=== PATIENT | female | born 1980 | race Caucasian/White ===

== ENCOUNTER 2019-08-15 00:55 | Emergency (ER) | payer MEDICAID ==
[~2019-08-15] VITALS: Ht 165.1 cm; Wt 61.2 kg
[2019-08-15 01:03] VITALS: BP 108/71
[2019-08-15] MEDS ORDERED: LIDOCAINE /MPF 1% VIAL 5 ML VIAL ONE (01:17)
--- NOTE | 2019-08-15 01:31 | NUR ---
Patient discharged to home in stable condition. Written and verbal after care instructions given. Patient verbalizes understanding of instruction. Pt ambulatory with a steady gait
== END 2019-08-15 01:50 | disposition home or self-care (01) ==
LOC: ER 00:57
DX: L02.511 Cutaneous abscess of right hand (principal); L03.113 Cellulitis of right upper limb; F17.210 Nicotine dependence, cigarettes, uncomplicated
CPT/HCPCS: 10060; 99283; J3490

== ENCOUNTER 2020-06-19 12:13 | Emergency (ER) | payer MEDICAID ==
[~2020-06-19] VITALS: Ht 165.1 cm; Wt 59.0 kg
[2020-06-19] MEDS ORDERED: IV NS 0.9% 500 ML BAG IV ONE (13:00)
--- NOTE | 2020-06-19 13:19 | NUR ---
BIBS FROM HOME TO ER BED 6. AAOX4. NOT IN RESP DISTRESS, BREATHING EVEN AND UNLABORED. AMBULATORY. CAME IN FOR R CHEST PAIN AND R BACK PAIN SINCE YESTERDAY AFTER DOING STRETCHING. PT REPORTS THAT THE PAIN IS PRESENT WHEN DEEP BREATHING AND COUGHING. RATES PAIN 01/21. MD WAS AT THE BEDSIDE FOR EVAL. ORDERS RECEIVED, NOTED AND CARRIED OUT. IV LINE OBTAINED ON RFA 20G. BLOOD DRAWN AND SENT GIVEN TO [facility]. COVID SWAB DONE WELL EKG
[2020-06-19 13:29] LABS: BASOPHILS % (AUTO) 0.1 % (0.0-2.0); HEMATOCRIT 35 % (33-45); HEMOGLOBIN 11.6 g/dL (11.5-14.8); LYMPHOCYTES # (AUTO) 0.3 /CMM (0.8-4.8); LYMPHOCYTES % (AUTO) 3.6 % (20.0-44.0); MEAN CORPUSCULAR HGB CONC 33 g/dl (31.0-36.0); MEAN CORPUSCULAR VOLUME 87 fL (82-100); MONOCYTES # (AUTO) 0.5 /CMM (0.1-1.30); MONOCYTES % (AUTO) 5.2 % (2.0-12.0); NEUTROPHILS % (AUTO) 91.1 % (43.0-81.0); PLATELET COUNT (AUTO) 250 /CMM (150-450); WHITE BLOOD COUNT (AUTO) 8.8 K/uL (4.3-11.0)
[2020-06-19 13:44] LABS: CALCIUM, SERUM 8.4 mg/dL (8.5-10.1); CARBON DIOXIDE 24 mmol/L (21-32); CHLORIDE 100 mmol/L (98-107); CREATININE 1.1 mg/dL (0.6-1.3); GLUCOSE 128 mg/dL (74-106); POTASSIUM 3.4 mmol/L (3.5-5.1); SODIUM SERUM 134 mmol/L (136-145); UREA NITROGEN, BLOOD 15 mg/dL (7-18)
[2020-06-19 13:57] LABS: ALANINE AMINOTRANSFERASE 20 U/L (12-78); ALKALINE PHOSPHATASE 57 U/L (46-116); ASPARTATE AMINOTRANSFERASE 21 U/L (15-37); B-TYPE NATRIURETIC PEPTIDE 1615 PG/ML (0-125); BILIRUBIN,DIRECT 0.3 mg/dL (0.0-0.2); BILIRUBIN,TOTAL 0.8 mg/dL (0.2-1.0); TOTAL PROTEIN, SERUM 6.3 g/dL (6.4-8.2)
[2020-06-19] MEDS ORDERED: IV NS 0.9% 250 ML IV ONE (14:26)
[2020-06-19] MEDS ORDERED: IOHEXOL-350 100 ML VIAL IV ONE (14:26)
--- NOTE | 2020-06-19 14:32 | NUR ---
PT TO CT PAULINE GELLER
[2020-06-19] MEDS ORDERED: LEVOFLOXACIN 750 MG /D5W 150ML PIGGYBACK IV ONE (16:30)
[2020-06-19] MEDS ORDERED: POTASSIUM CHLORIDE 20 MEQ TAB.PRT.SR PO ONE ×2 (16:30→17:58)
[2020-06-19] MEDS ORDERED: LEVOFLOXACIN 750 MG /D5W 150ML 150 ML IV ONE (17:58)
[2020-06-19] MEDS ORDERED: LEVOFLOXACIN 750 MG /D5W 150ML 750 MG in PREMIX 1 EA IV ONE (18:00)
[2020-06-19 19:14] VITALS: BP 125/66
--- NOTE | 2020-06-19 19:14 | NUR ---
IV removed. Catheter intact and site benign. Pressure and 4x4 applied to site. No bleeding noted. Patient discharged to home in stable condition. Written and verbal after care instructions given. Patient verbalizes understanding of instruction.
== END 2020-06-19 19:27 | disposition home or self-care (01) ==
LOC: ER 12:21
DX: J18.9 Pneumonia, unspecified organism (principal); R07.89 Other chest pain; R06.00 Dyspnea, unspecified; R59.0 Localized enlarged lymph nodes; F17.200 Nicotine dependence, unspecified, uncomplicated; Z20.828 Contact with and (suspected) exposure to other viral communicable diseases
CPT/HCPCS: 36415; 71045; 71275; 80048; 80076; 83880; 84484; 84703; 85025; 87426; 93005; 96365; 99285; C9803; J1956; J7040; J7050; Q9967